=== PATIENT | female | born 1960 | race Asian ===

== ENCOUNTER 2016-11-19 08:39 | Emergency (ER) | payer OTHER ==
[~2016-11-19] VITALS: Ht 152.4 cm; Wt 100.0 kg
[2016-11-19] MEDS ORDERED: NiCARDipine IV 25 MG in SODIUM CHLORIDE 0.9% 250ML 240 ML IV STA (08:50)
[2016-11-19 08:55] VITALS: TEMP 36.7; O2SAT 94; Ht 152.4 cm; Wt 100.0 kg
--- NOTE | 2016-11-19 08:57 | DIAGNOSTIC IMAGING REPORT ---
HEAD WITHOUT CONTRAST (CT) CLINICAL HISTORY: 56 years-old Female with stroke. Acute strokelike symptoms with right-sided weakness. TECHNIQUE: Multiple axial CT images of the head were obtained without contrast. A dose lowering technique was utilized adhering to the principles of ALARA. CT DOSE: 601.98 mGy.cm COMPARISON: None. FINDINGS: There is an acute intraparenchymal hemorrhage, 2.5 x 1.4 cm involving the left thalamus with mild degree of surrounding vasogenic edema causing local mass effect. No midline shift or intraventricular hemorrhagic extension. There is no territorial ischemia. There is mild background atrophy with scattered areas of low-attenuation within the subcortical and periventricular white matter of the cerebral hemispheres bilaterally suggesting chronic microvascular ischemic changes. The calvarium is intact. The paranasal sinuses, mastoid air cells, and middle ear cavities are clear. IMPRESSION: 1. Acute intraparenchymal hemorrhage of the left thalamus, 2.5 x 1.4 cm with mild degree of surrounding vasogenic edema causes mild local mass effect without midline shift or herniation. 2. Mild atrophy with background chronic microvascular ischemic changes. Findings were discussed with Dr. Virgen at 8:54 AM on 11/19/2016 The above report was generated using voice recognition software. It may contain grammatical, syntax or spelling errors. Electronically signed by: Eris Perez M.D. 11/19/2016 8:56 AM Dictated Date/Time: 11/19/2016 8:51 AM RUSS
--- NOTE | 2016-11-19 09:01 | EMERGENCY ROOM VISIT NOTE ---
History Report prepared by Hiro: Richard Conte Under the Supervision of: Dr. Jace Virgen M.D. First contact with patient: 08:40 Chief Complaint: STROKE SYMPTOMS Stated Complaint: POSS STROKE History of Present Illness The patient is a 56 year old female who presents to the Emergency Room via EMS with complaints of right sided weakness that began 1 hour ago. She did not receive any medications en route. She was hypertension on arrival and was immediately taken to CT scan. This morning, the patient woke up from sleep with significant right arm weakness, an inability to walk, and tingling on her right side. She was awake at 0200 this morning to use the bathroom and was at her baseline. She currently has a headache, but denies any syncope, chest pain, shortness of breath, or head trauma. She takes 81 mg Aspirin daily. She denies any other blood thinner use. She has a past medical history of hypertension and diabetes. The patient's notes that 4 days ago, the patient had some mild tingling to her right side that lasted a couple of hours without weakness. She denies any history of stroke, head bleeds, heart attacks, or other bleeding irregularities. Source of History: patient, spouse/significant other Onset: 1 hour ago Position: other (Right-side of body) Symptom Intensity: moderate Quality: other (Weakness) Timing: constant Associated Symptoms: + headache, No LOC, No chest pain, No SOB Note: She is having tingling to her right side and a difficulty walking. Review of Systems See HPI for pertinent positives & negatives. A total of 10 systems reviewed and were otherwise negative. Past Medical & Surgical Medical Problems: (1) Diabetes (2) HTN (hypertension) Family History Omitted secondary to the patient's age. Social History Smoking Status: Unknown if Ever Smoked Smokeless Tobacco Use: Unknown Drug Use: none Marital Status: Housing Status: lives with significant other Occupation Status: employed Current/Historical Medications Scheduled Aspirin (Aspirin Ec), 81 MG PO DAILY Atenolol (Tenormin), 100 MG PO QAM Dapagliflozin Propanediol (Farxiga), 10 MG PO DAILY Insulin Aspart (Novolog Flexpen), 25 UNITS SQ BID Meloxicam (Mobic), 7.5 MG PO DAILY Metformin Hcl (Glucophage Er), 750 MG PO DAILY Ranitidine (Zantac), 150 MG PO DAILY Simvastatin (Zocor), 40 MG PO QPM Telmisartan (Telmisartan), 40 MG PO QPM Allergies Coded Allergies: No Known Allergies (Unverified , 11/19/16) Physical Exam Vital Signs Date Time Temp Pulse Resp B/P (MAP) Pulse Ox O2 Delivery O2 Flow Rate FiO2 11/19/16 11:35 72 16 134/73 96 Room Air 11/19/16 11:19 77 16 129/74 95 Room Air 11/19/16 11:05 54 16 124/72 95 Room Air 11/19/16 10:45 83 16 139/74 96 Room Air 11/19/16 10:37 83 18 149/83 98 Room Air 11/19/16 10:22 90 20 146/84 94 Room Air 11/19/16 09:58 83 16 159/82 97 Room Air 11/19/16 09:52 85 16 135/82 97 Room Air 11/19/16 09:45 80 16 158/89 97 Room Air 11/19/16 09:37 78 166/87 11/19/16 09:26 82 151/80 11/19/16 09:24 85 167/91 11/19/16 09:21 167/91 11/19/16 09:19 80 25 92 11/19/16 09:17 172/113 11/19/16 09:14 76 24 11/19/16 09:12 186/95 11/19/16 09:09 73 19 11/19/16 09:05 169/93 11/19/16 09:04 72 22 11/19/16 08:59 74 21 94 11/19/16 08:56 75 11/19/16 08:55 94 Room Air 11/19/16 08:55 36.7 74 18 186/103 94 Room Air 11/19/16 08:53 186/103 Physical Exam GENERAL: Patient is well appearing and in no acute distress. HEENT: No acute trauma, normocephalic atraumatic, mucous membranes moist, no nasal congestion, no scleral icterus. NECK: No stridor, no adenopathy, no meningismus, trachea is midline. LUNGS: No dyspnea. Clear to auscultation and equal bilaterally. No wheeze, no rhonchi. HEART: Regular rate and rhythm. No murmurs, rubs, gallops appreciated. ABDOMEN: Soft, nontender, bowel sounds positive, no masses appreciated, no peritonitis. BACK: No midline tenderness, no CVA tenderness EXTREMITIES: 3/5 strength in the right arm and right foot with loss of fine motor ability. NEUROLOGIC: Alert and oriented, mild right facial weakness, able to over come with voluntary movement, decreased sensation through the right side of body. SKIN: No rash, no jaundice, no diaphoresis. Medical Decision & Procedures ER Provider Diagnostic Interpretation: Radiology results and stated below per my review and radiologist interpretation: HEAD WITHOUT CONTRAST (CT) CLINICAL HISTORY: 56 years-old Female with stroke. Acute strokelike symptoms with right-sided weakness. TECHNIQUE: Multiple axial CT images of the head were obtained without contrast. A dose lowering technique was utilized adhering to the principles of ALARA. CT DOSE: 601.98 mGy.cm COMPARISON: None. FINDINGS: There is an acute intraparenchymal hemorrhage, 2.5 x 1.4 cm involving the left thalamus with mild degree of surrounding vasogenic edema causing local mass effect. No midline shift or intraventricular hemorrhagic extension. There is no territorial ischemia. There is mild background atrophy with scattered areas of low-attenuation within the subcortical and periventricular white matter of the cerebral hemispheres bilaterally suggesting chronic microvascular ischemic changes. The calvarium is intact. The paranasal sinuses, mastoid air cells, and middle ear cavities are clear. IMPRESSION: 1. Acute intraparenchymal hemorrhage of the left thalamus, 2.5 x 1.4 cm with mild degree of surrounding vasogenic edema causes mild local mass effect without midline shift or herniation. 2. Mild atrophy with background chronic microvascular ischemic changes. Findings were discussed with Dr. Virgen at 8:54 AM on 11/19/2016 The above report was generated using voice recognition software. It may contain grammatical, syntax or spelling errors. Electronically signed by: Eris Perez M.D. 11/19/2016 8:56 AM Dictated Date/Time: 11/19/2016 8:51 AM CHEST ONE VIEW PORTABLE HISTORY: 56 years-old Female stroke acute strokelike symptoms with acute intraparenchymal hemorrhage of the left thalamus. COMPARISON: None available TECHNIQUE: Portable upright AP view of the chest FINDINGS: Cardiac silhouette is mildly enlarged. There is mild pulmonary vascular congestion without pneumothorax, pleural effusion or focal airspace consolidation. No overt pulmonary edema. The bones are grossly intact. Incidental note is made of probable calcific tendinosis of the left rotator cuff. IMPRESSION: Mild cardiomegaly with pulmonary vascular congestion. No overt pulmonary edema or focal airspace consolidation. The above report was generated using voice recognition software. It may contain grammatical, syntax or spelling errors. Electronically signed by: Eris Perez M.D. 11/19/2016 9:46 AM Dictated Date/Time: 11/19/2016 9:45 AM Laboratory Results 11/19/16 08:57 Red Blood Count 6.11, Mean Corpuscular Volume 81.3, Mean Corpuscular Hemoglobin 26.5, Mean Corpuscular Hemoglobin Concent 32.6, Mean Platelet Volume 10.6, Neutrophils (%) (Auto) 56.0, Lymphocytes (%) (Auto) 34.6, Monocytes (%) (Auto) 4.7, Eosinophils (%) (Auto) 4.2, Basophils (%) (Auto) 0.4, Neutrophils # (Auto) 4.56, Lymphocytes # (Auto) 2.82, Monocytes # (Auto) 0.38, Eosinophils # (Auto) 0.34, Basophils # (Auto) 0.03 11/19/16 08:57 Test 11/19/16 08:57 11/19/16 09:05 White Blood Count 8.14 K/uL (4.8-10.8) Red Blood Count 6.11 M/uL (4.2-5.4) Hemoglobin 16.2 g/dL (12.0-16.0) Hematocrit 49.7 % (37-47) Mean Corpuscular Volume 81.3 fL (80-100) Mean Corpuscular Hemoglobin 26.5 pg (25-34) Mean Corpuscular Hemoglobin Concent 32.6 g/dl (32-36) Platelet Count 315 K/uL (130-400) Mean Platelet Volume 10.6 fL (7.4-10.4) Neutrophils (%) (Auto) 56.0 % Lymphocytes (%) (Auto) 34.6 % Monocytes (%) (Auto) 4.7 % Eosinophils (%) (Auto) 4.2 % Basophils (%) (Auto) 0.4 % Neutrophils # (Auto) 4.56 K/uL (1.4-6.5) Lymphocytes # (Auto) 2.82 K/uL (1.2-3.4) Monocytes # (Auto) 0.38 K/uL (0.11-0.59) Eosinophils # (Auto) 0.34 K/uL (0-0.5) Basophils # (Auto) 0.03 K/uL (0-0.2) RDW Standard Deviation 41.8 fL (36.4-46.3) RDW Coefficient of Variation 14.2 % (11.5-14.5) Immature Granulocyte % (Auto) 0.1 % Immature Granulocyte # (Auto) 0.01 K/uL (0.00-0.02) Prothrombin Time 10.0 SECONDS (9.0-12.0) Prothromb Time International Ratio 0.9 (0.9-1.1) Activated Partial Thromboplast Time 29.9 SECONDS (21.0-31.0) Partial Thromboplastin Ratio 1.2 Anion Gap 7.0 mmol/L (3-11) Est Creatinine Clear Calc Drug Dose 93.6 ml/min Estimated GFR () 108.2 Estimated GFR (Non- 93.4 BUN/Creatinine Ratio 22.1 (10-20) Calcium Level 9.1 mg/dl (8.5-10.1) Bedside Glucose 147 mg/dl (70-90) Laboratory results as reviewed by me. Medications Administered Medications (Trade) Dose Ordered Sig/[place]ster Route Start Time Stop Time Status Last Admin Dose Admin Nicardipine HCl 25 mg/Sodium Chloride 250 ml @ 0 mls/hr Q0M STAT IV 11/19/16 08:50 11/19/16 08:52 DC 11/19/16 09:08 5 MLS/HR ECG Indication: weakness Rate (beats per minute): 76 Rhythm: normal sinus Findings: no acute ischemic change, no ectopy ED Course 0840: The patient was evaluated in room B4B. A complete history and physical exam was performed. 0907: I spoke with Dr. Soto of [facility] at this time. We discussed the patient's case. He agrees with the plan to transfer the patient to a tertiary care center. He would like me to speak with [facility] ICU. 0910: I spoke with Dr. Drummond of [facility] ICU at this time. We discussed the patient's case. They also agree with transfer and have accepted the patient for further care and management. They also note that the patient's goal systolic blood pressure should be less than 160. We will try to get a helicopter for transfer. 0942: The patient's condition is not worsening and has not changed. Her blood pressure is improving. We are still awaiting transfer to [facility]. 1000: The patient is still feeling fine at this time. 1037: She is stable and so is her BP. She has had no worsening of her neurologic deficits. 1128: Life flight has arrived at bedside. She is stable. Medical Decision Differential: Stroke, Hemorrhage, Dissection, Seizure, Meningitis, Tumor, Sinus Thrombosis, Arterial Dissection, Electrolyte abnormality, amongst other pathologies entertained. 56 yr old German female with history of DMII/HTN in town visiting daughter arrives with right sided weakness and last known normal of 2am. Immediate CT head shows thalamic hemorrhage, no midline shift. GCS 15 and protecting airway with clear lungs bilaterally. Immediately began transfer process while ordering labs and starting on Cardene for hypertensive issues. Reported only 81mg ASA per thus no indication for reversal at this time. BP maintained < 160 which ended up staying at 5mg/hr. Initial labs unremarkable and patient remained stable. CXR clear. EKG normal. Due to weather helicopter with critical care team from [place] dispatched. Discussed case with Neuro Surg and ICU who accept for transfer. Medication Reconcilliation Current Medication List: was personally reviewed by me Blood Pressure Screening Patient's blood pressure: Elevated blood pressure Blood pressure disposition: Elevated BP felt to be situational (secondary to head bleed, being aggressively treated) Consults Time Called: 904 Consulting Physician: [facility] Returned Call: [phone] We discussed the patient's case. He agrees with the plan for transfer to a tertiary care facility. He asked me to talk with a [facility] ICU doctor. Additional Consults: Time Called: 907 Consulted Physician: Dr. Drummond - [facility] Returned Call: [phone] Additional Comments: With discussed the patient's case. They agree with the plan for transfer and accepts the patient for further management. They also state that their goal systolic blood pressure is less than 160. Impression Primary Impression: Thalamic hemorrhage Additional Impression: HTN (hypertension) Critical Care I have personally spent greater than 90 minutes of critical care time in the direct management of this patient. This was a life/limb threatening event. This includes time spent evaluating patient, direct bedside care, chart review, placing orders, interpretation of diagnostic studies, discussion with consultants, patient, and family members, as well as other required patient management activities. This 90 minutes is in excess of all separately billable procedures. Scribe Attestation The scribe's documentation has been prepared under my direction and personally reviewed by me in its entirety. I confirm that the note above accurately reflects all work, treatment, procedures, and medical decision making performed by me. Departure Information Dispostion Transfer Acute Care Facility Referrals No Doctor, Assigned (PCP) Patient Instructions My [facility] Stroke History Time Last Known Well 1 hour ago Stroke t-PA Criteria Reviewed Does NOT meet criteria for t-PA Reason t-PA Not Given Contraindicated (Because of head bleed) Problem Qualifiers
[2016-11-19] MEDS ORDERED: DAPA1TAB2 PO (09:11)
[2016-11-19] MEDS ORDERED: TELM1TAB PO (09:11)
[2016-11-19] MEDS ORDERED: ZCRT/40 PO (09:11)
[2016-11-19] MEDS ORDERED: MELO7.5T5 PO (09:11)
[2016-11-19] MEDS ORDERED: ZNTT/150 PO (09:11)
[2016-11-19] MEDS ORDERED: ASPI81TA28 PO (09:11)
[2016-11-19] MEDS ORDERED: METF750T PO (09:11)
[2016-11-19] MEDS ORDERED: ATEN100T PO (09:11)
[2016-11-19] MEDS ORDERED: NVLGIPEN SQ (09:11)
[2016-11-19 09:36] LABS: BASO % 0.4 %; BASO ABS # 0.03 K/uL (0-0.2); COMPLETE YES; EOS % 4.2 %; HEMATOCRIT 49.7 % (37-47); IG% 0.1 %; LYMPH % 34.6 %; LYMPH ABS # 2.82 K/uL (1.2-3.4); MEAN CELL VOLUME 81.3 fL (80-100); MEAN CORPUSCULAR HEMOGLOBIN 26.5 pg (25-34); MEAN CORPUSCULAR HGB CONC 32.6 g/dl (32-36); MEAN PLATELET VOLUME 10.6 fL (7.4-10.4); MONO % 4.7 %; PLATELET COUNT 315 K/uL (130-400); RED BLOOD COUNT 6.11 M/uL (4.2-5.4); WHITE BLOOD COUNT 8.14 K/uL (4.8-10.8)
[2016-11-19 09:43] LABS: BUN/CREATININE RATIO 22.1 (10-20); CALCIUM 9.1 mg/dl (8.5-10.1); CREATININE 0.73 mg/dl (0.60-1.20); POTASSIUM 3.6 mmol/L (3.5-5.1)
--- NOTE | 2016-11-19 09:47 | DIAGNOSTIC IMAGING REPORT ---
CHEST ONE VIEW PORTABLE HISTORY: 56 years-old Female stroke acute strokelike symptoms with acute intraparenchymal hemorrhage of the left thalamus. COMPARISON: None available TECHNIQUE: Portable upright AP view of the chest FINDINGS: Cardiac silhouette is mildly enlarged. There is mild pulmonary vascular congestion without pneumothorax, pleural effusion or focal airspace consolidation. No overt pulmonary edema. The bones are grossly intact. Incidental note is made of probable calcific tendinosis of the left rotator cuff. IMPRESSION: Mild cardiomegaly with pulmonary vascular congestion. No overt pulmonary edema or focal airspace consolidation. The above report was generated using voice recognition software. It may contain grammatical, syntax or spelling errors. Electronically signed by: Eris Perez M.D. 11/19/2016 9:46 AM Dictated Date/Time: 11/19/2016 9:45 AM
[2016-11-19 09:51] LABS: INR 0.9 (0.9-1.1); PARTIAL THROMBOPLASTIN RATIO 1.2
[2016-11-19 11:35] VITALS: BP 134/73; PULSE 72; O2SAT 96
== END 2016-11-19 11:48 | disposition short-term general hospital (02) ==
LOC: C.EDB 08:42
DX: I61.9 Nontraumatic intracerebral hemorrhage, unspecified (principal); I10 Essential (primary) hypertension; E11.9 Type 2 diabetes mellitus without complications; Z79.4 Long term (current) use of insulin; Z79.82 Long term (current) use of aspirin; Z79.84 Long term (current) use of oral hypoglycemic drugs; Z79.899 Other long term (current) drug therapy